=== PATIENT | female | born 1940 | race African-American/Black ===

== ENCOUNTER 2017-12-30 08:52 | Inpatient (IN) ==
[2017-12-30] MEDS ORDERED: ASPIRIN 325 MG TABLET PO STA (09:38)
[2017-12-30] MEDS ORDERED: ALBUTEROL/IPRATROPIUM 3 ML NEB RESP TX STA (09:38)
[2017-12-30] MEDS ORDERED: ONDANSETRON 4 MG/2 ML VIAL IV STA (09:38)
[2017-12-30] MEDS ORDERED: DILTIAZEM 50 MG/10 ML VIAL IV STA (09:38)
[2017-12-30] MEDS ORDERED: FUROSEMIDE 100 MG/10 ML VIAL IV STA (09:38)
[2017-12-30] MEDS ORDERED: CLINDAMYCIN INJ 600 MG in PREMIX 1 EACH IV STA (09:38)
[2017-12-30] MEDS ORDERED: ONDANSETRON 4 MG/2 ML VIAL ONE (09:49)
[2017-12-30] MEDS ORDERED: ASPIRIN 325 MG TABLET ONE (09:49)
[2017-12-30] MEDS ORDERED: FUROSEMIDE 100 MG/10 ML VIAL ONE (09:49)
[2017-12-30] MEDS ORDERED: DILTIAZEM 100 MG VIAL.ADD IV ONE ×2 (10:22→17:35)
[2017-12-30 10:35] LABS: Basophils % 0.2 % (0.0-0.8); Eosinophils % 0.3 % (0.00-10.9); Hematocrit 36.2 VOL% (35.7-47.0); Hemoglobin 12.2 GM/DL (12.0-16.0); Immature Granulocytes % 0.8 %; Immature Granulocytes Absolute 0.07 #; Lymphocytes # 1.4 10*3/uL (1.4-4.0); Lymphocytes % 16.8 % (21.3-54.2); Mean Corpuscular HGB Conc 33.7 GM/DL (32-36); Mean Corpuscular Hemoglobin 30 PG (27-34); Mean Corpuscular Volume 89.6 FL (87-102); Mean Platelet Volume 12.4 FL (9.6-12.0); Monocytes # 0.9 10*3/uL (0.11-0.8); Monocytes % 10.6 % (1.7-12.7); Neutrophils # 6.1 10*3/uL (1.4-7.4); Neutrophils % 71.3 % (38.7-73.9); Platelet Count 158 T/CUMM (130-400); Red Blood Count 4.04 MC/CUMM (3.8-5.5); Red Cell Distribution Width 14.3 % (9.3-17.3); White Blood Count 8.6 T/CUMM (4-12)
[2017-12-30 10:47] LABS: INR 1.3; PT Patient Result 13.6 SECS
[2017-12-30 10:50] LABS: Albumin 2.2 G/DL (3.4-5.0); Bilirubin,Total 0.7 MG/DL (0.2-1.0); Calcium 9.7 MG/DL (8.5-10.1); Osmolality,Calculated 284.4 MOS/KG (273-304); Potassium 3.8 MMOL/L (3.5-5.1); Total Protein 8.2 G/DL (6.4-8.3)
[2017-12-30 10:52] LABS: Apearance,Urine CLEAR (Clear); Bacteria,Urine Occasional /HPF (Few); Bilirubin,Urine Negative (Negative); Blood, Urine Negative (Negative); Glucose,Urine (UA) Negative (Negative); Ketones,Urine Negative (Negative); Mucus,Urine Occasional /LPF (Occasional); Nitrite,Urine Negative (Negative); Protein,Urine Negative; RBC,Urine 1 /HPF (0-4); Squamous Epithelial Cell,Urine Occasional /HPF (0-10); Urine Color Yellow (Yellow); Urine Specific Gravity 1.009 (1.001-1.035); Urine Urobilinogen < 2.0 EU/DL (0.2-1.0); WBC,Urine 1 /HPF (0-6)
[2017-12-30 10:57] LABS: Eosinophils 1 % (0-10); Hypochromasia 1+; Lymphocytes 18 % (20-55); Platelet Estimate Normal; Segmented Neutrophils 67 % (50-85); Total Cells Counted 100
[2017-12-30 10:58] LABS: Giant Platelets Few; Microcytosis Slight; Ovalocytes Slight
[2017-12-30] MEDS ORDERED: MAGNESIUM SULF RIDER 2 GM in PREMIX 1 EACH IV STA (11:08)
[2017-12-30] MEDS ORDERED: CLINDAMYCIN INJ 50 ML IV ONE (12:58)
[2017-12-30] MEDS ORDERED: MAGNESIUM SULF RIDER 50 ML IV ONE (12:58)
[2017-12-30] MEDS ORDERED: ONDANSETRON 4 MG/2 ML VIAL IV PRN (13:09)
[2017-12-30] MEDS ORDERED: ACETAMINOPHEN 325 MG TABLET PO PRN (13:09)
[2017-12-30] MEDS ORDERED: diphenhydrAMINE CAP 25 MG CAPSULE PO PRN (13:09)
[2017-12-30] MEDS ORDERED: guaiFENesin/DM ER 600-30 MG TABLET PO PRN (13:09)
[2017-12-30] MEDS ORDERED: DOCUSATE SODIUM 100 MG CAPSULE PO PRN (13:09)
[2017-12-30] MEDS ORDERED: SODIUM CHLORIDE 0.9% 1,000 ML IV SCH (13:30)
[2017-12-30] MEDS ORDERED: SODIUM CHLORIDE 0.9% 100 ML IV ONE (17:35)
[2017-12-30] MEDS ORDERED: DILTIAZEM INJ 100 MG in SODIUM CHLORIDE 0.9% 100 ML IV SCH (18:00)
[2017-12-30] MEDS: SODIUM CHLORIDE 0.9% 1,000 ML IV SCH (18:32)
[2017-12-30] MEDS: ENOXAPARIN 40 MG/0.4 ML SYRINGE SUBCUT SCH (18:39)
[2017-12-30] MEDS: METOPROLOL SUCCINATE XL 100 MG TABLET PO SCH (18:40)
[2017-12-30] MEDS: PANTOPRAZOLE 40 MG TABLET PO SCH (18:40)
[2017-12-30] MEDS: amLODIPine 10 MG TABLET PO SCH (18:40)
[2017-12-30] MEDS: ASPIRIN EC 81 MG TABLET PO SCH (18:40)
[2017-12-30] MEDS: VALSARTAN/HCTZ 80-12.5 MG TABLET PO SCH (18:40)
[2017-12-30] MEDS: COLCHICINE 0.6 MG TABLET PO SCH (18:40)
[2017-12-30] MEDS: FUROSEMIDE 40 MG/4 ML VIAL IV SCH (18:41)
[2017-12-30] MEDS: AMPICILLIN/SULBACTAM 3,000 MG in SODIUM CHLORIDE 0.9% 100 ML IV SCH (22:15)
[2017-12-30] MEDS: ATORVASTATIN 10 MG TABLET PO SCH (22:16)
[2017-12-30] MEDS: ZALEPLON 5 MG CAPSULE PO PRN (22:16)
[2017-12-30] MEDS: VANCOMYCIN INJ 1,000 MG in SODIUM CHLORIDE 0.9% 250 ML IV SCH (22:16)
[2017-12-31] MEDS: FUROSEMIDE 40 MG/4 ML VIAL IV SCH ×3 (00:55→13:06)
[2017-12-31] MEDS: AMPICILLIN/SULBACTAM 3,000 MG in SODIUM CHLORIDE 0.9% 100 ML IV SCH ×4 (03:11→21:36)
[2017-12-31] MEDS: MORPHINE 2 MG/1 ML SYRINGE IV PRN ×3 (03:42→21:41)
[2017-12-31 04:05] LABS: Basophils % 0.3 % (0.0-0.8); Eosinophils # 0.2 10*3/uL (0.0-0.87); Eosinophils % 1.9 % (0.00-10.9); Hematocrit 32.4 VOL% (35.7-47.0); Immature Granulocytes % 0.3 %; Immature Granulocytes Absolute 0.03 #; Lymphocytes # 1.8 10*3/uL (1.4-4.0); Lymphocytes % 19.5 % (21.3-54.2); Mean Corpuscular Hemoglobin 30 PG (27-34); Mean Corpuscular Volume 88.5 FL (87-102); Mean Platelet Volume 12.8 FL (9.6-12.0); Monocytes # 1.4 10*3/uL (0.11-0.8); Monocytes % 14.7 % (1.7-12.7); Neutrophils # 5.9 10*3/uL (1.4-7.4); Neutrophils % 63.3 % (38.7-73.9); Platelet Count 161 T/CUMM (130-400); Red Blood Count 3.66 MC/CUMM (3.8-5.5); Red Cell Distribution Width 14.4 % (9.3-17.3); White Blood Count 9.3 T/CUMM (4-12)
[2017-12-31 04:31] LABS: Band Neutrophils 1 % (0-10); Eosinophils 5 % (0-10); Lymphocytes 36 % (20-55); Platelet Estimate Normal; Segmented Neutrophils 54 % (50-85); Total Cells Counted 100
[2017-12-31 04:43] LABS: Albumin 2.1 G/DL (3.4-5.0); Bilirubin,Total 0.8 MG/DL (0.2-1.0); Calcium 9.1 MG/DL (8.5-10.1); Osmolality,Calculated 277.8 MOS/KG (273-304); Potassium 3.6 MMOL/L (3.5-5.1); Risk Ratio 3.24; Thyroid Stimulating Hormone 0.652 uIU/ml (0.358-3.74); Total Protein 7.1 G/DL (6.4-8.3)
[2017-12-31] MEDS ORDERED: RABIES IMMUNE GLOBULIN 300 UNIT/2 ML VIAL IM ONE (09:00)
[2017-12-31] MEDS ORDERED: RABIES VIRUS VACCINE 1 ML/2.5 UNIT KIT IM ONE (09:00)
[2017-12-31] MEDS ORDERED: BUPIVACAINE 0.25% 50 ML VIAL ONE (10:05)
[2017-12-31] MEDS ORDERED: LACTATED RINGERS 1,000 ML IV SCH (11:00)
[2017-12-31] MEDS ORDERED: SEVOFLURANE 1 UNIT/15 MINUTE INH ONE (11:20)
[2017-12-31] MEDS ORDERED: MIDAZOLAM 2 MG/2 ML VIAL ONE (11:20)
[2017-12-31] MEDS ORDERED: PROPOFOL 200 MG/20 ML VIAL IV ONE (11:20)
[2017-12-31] MEDS ORDERED: fentaNYL 100 MCG/2 ML VIAL ONE (11:21)
[2017-12-31] MEDS ORDERED: ONDANSETRON 4 MG/2 ML VIAL ONE (11:21)
[2017-12-31] MEDS: amLODIPine 10 MG TABLET PO SCH (12:42)
[2017-12-31] MEDS: VALSARTAN/HCTZ 80-12.5 MG TABLET PO SCH (12:42)
[2017-12-31] MEDS: COLCHICINE 0.6 MG TABLET PO SCH (12:42)
[2017-12-31] MEDS: PANTOPRAZOLE 40 MG TABLET PO SCH (12:43)
[2017-12-31] MEDS: ASPIRIN EC 81 MG TABLET PO SCH (12:43)
[2017-12-31] MEDS: ENOXAPARIN 40 MG/0.4 ML SYRINGE SUBCUT SCH (13:06)
[2017-12-31] MEDS: SODIUM CHLORIDE 0.9% 1,000 ML IV SCH (13:06)
[2017-12-31] MEDS: METOPROLOL SUCCINATE XL 100 MG TABLET PO SCH ×2 (13:17→21:36)
[2017-12-31] MEDS: VANCOMYCIN INJ 1,000 MG in SODIUM CHLORIDE 0.9% 250 ML IV SCH (21:35)
[2017-12-31] MEDS: ZALEPLON 5 MG CAPSULE PO PRN (21:36)
[2017-12-31] MEDS: ATORVASTATIN 10 MG TABLET PO SCH (21:37)
[2018-01-01] MEDS: AMPICILLIN/SULBACTAM 3,000 MG in SODIUM CHLORIDE 0.9% 100 ML IV SCH ×2 (02:29→09:07)
[2018-01-01 05:23] LABS: Calcium 8.9 MG/DL (8.5-10.1); Osmolality,Calculated 275.1 MOS/KG (273-304); Potassium 3.1 MMOL/L (3.5-5.1)
[2018-01-01] MEDS: POTASSIUM CHLORIDE 20 MEQ TABLET PO SCH ×4 (06:56→18:19)
[2018-01-01] MEDS: METOPROLOL SUCCINATE XL 100 MG TABLET PO SCH ×2 (09:06→22:29)
[2018-01-01] MEDS: COLCHICINE 0.6 MG TABLET PO SCH (09:06)
[2018-01-01] MEDS: VALSARTAN 80 MG TABLET PO SCH (09:06)
[2018-01-01] MEDS: amLODIPine 10 MG TABLET PO SCH (09:07)
[2018-01-01] MEDS: ASPIRIN EC 81 MG TABLET PO SCH (09:07)
[2018-01-01] MEDS: PANTOPRAZOLE 40 MG TABLET PO SCH (09:07)
[2018-01-01] MEDS ORDERED: MAGNESIUM SULF RIDER 2 GM in PREMIX 1 EACH IV ONE (13:17)
[2018-01-01 14:10] LABS: Troponin I Only < 0.015 NG/ML (0.00-0.045)
[2018-01-01] MEDS: ENOXAPARIN 40 MG/0.4 ML SYRINGE SUBCUT SCH (14:10)
[2018-01-01] MEDS: ISOSORBIDE MONONITRATE 30 MG TABLET PO SCH (14:10)
[2018-01-01] MEDS: MAGNESIUM OXIDE 400 MG TABLET PO SCH ×2 (14:11→22:29)
[2018-01-01] MEDS: MAGNESIUM SULFATE 1 GM/2 ML VIAL IM SCH (14:11)
[2018-01-01] MEDS ORDERED: MAGNESIUM OXIDE 400 MG TABLET PO SCH (21:00)
[2018-01-01] MEDS: ATORVASTATIN 40 MG TABLET PO SCH (22:29)
[2018-01-02] MEDS: MAGNESIUM SULFATE 1 GM/2 ML VIAL IM SCH (00:21)
[2018-01-02 05:48] LABS: Osmolality,Calculated 273.8 MOS/KG (273-304); Potassium 5.6 MMOL/L (3.5-5.1)
[2018-01-02] MEDS: BACITRACIN OINT 0.9 GM PACK TOP SCH (08:48)
[2018-01-02] MEDS: VALSARTAN 80 MG TABLET PO SCH (08:48)
[2018-01-02] MEDS: MAGNESIUM OXIDE 400 MG TABLET PO SCH ×2 (08:49→21:04)
[2018-01-02] MEDS: ASPIRIN EC 81 MG TABLET PO SCH (08:49)
[2018-01-02] MEDS: METOPROLOL SUCCINATE XL 100 MG TABLET PO SCH ×2 (08:49→21:04)
[2018-01-02] MEDS: ISOSORBIDE MONONITRATE 30 MG TABLET PO SCH (08:49)
[2018-01-02] MEDS: PANTOPRAZOLE 40 MG TABLET PO SCH (08:49)
[2018-01-02] MEDS: amLODIPine 10 MG TABLET PO SCH (08:49)
[2018-01-02] MEDS: COLCHICINE 0.6 MG TABLET PO SCH (08:49)
[2018-01-02] MEDS ORDERED: SODIUM POLYSTYRENE SULFATE 15 GM/60 ML BOTTLE PO ONE (11:03)
[2018-01-02] MEDS: ENOXAPARIN 40 MG/0.4 ML SYRINGE SUBCUT SCH (13:30)
[2018-01-02] MEDS: FLUCONAZOLE 100 MG TABLET PO SCH (16:22)
[2018-01-02] MEDS: ATORVASTATIN 40 MG TABLET PO SCH (21:04)
[2018-01-03 04:59] LABS: Basophils % 0.1 % (0.0-0.8); Eosinophils # 0.2 10*3/uL (0.0-0.87); Eosinophils % 1.8 % (0.00-10.9); Hematocrit 28.7 VOL% (35.7-47.0); Hemoglobin 9.5 GM/DL (12.0-16.0); Immature Granulocytes % 0.5 %; Immature Granulocytes Absolute 0.05 #; Lymphocytes # 1.8 10*3/uL (1.4-4.0); Lymphocytes % 19.1 % (21.3-54.2); Mean Corpuscular HGB Conc 33.1 GM/DL (32-36); Mean Corpuscular Hemoglobin 30 PG (27-34); Mean Corpuscular Volume 90.3 FL (87-102); Mean Platelet Volume 11.8 FL (9.6-12.0); Monocytes # 1.5 10*3/uL (0.11-0.8); Monocytes % 16.1 % (1.7-12.7); Neutrophils # 5.7 10*3/uL (1.4-7.4); Neutrophils % 62.4 % (38.7-73.9); Platelet Count 199 T/CUMM (130-400); Red Blood Count 3.18 MC/CUMM (3.8-5.5); Red Cell Distribution Width 14.3 % (9.3-17.3); White Blood Count 9.1 T/CUMM (4-12)
[2018-01-03 05:21] LABS: Band Neutrophils 5 % (0-10); Eosinophils 1 % (0-10); Hypochromasia 1+; Lymphocytes 22 % (20-55); Segmented Neutrophils 67 % (50-85); Total Cells Counted 100
[2018-01-03 05:22] LABS: Microcytosis Slight; Platelet Estimate Adequate; Target Cells Slight
[2018-01-03 05:33] LABS: Albumin 1.7 G/DL (3.4-5.0); Bilirubin,Total 0.5 MG/DL (0.2-1.0); Osmolality,Calculated 274.8 MOS/KG (273-304); Potassium 4.8 MMOL/L (3.5-5.1); Total Protein 6.6 G/DL (6.4-8.3)
[2018-01-03 08:07] VITALS: BP 141/65
[2018-01-03] MEDS: MAGNESIUM OXIDE 400 MG TABLET PO SCH (08:36)
[2018-01-03] MEDS: BACITRACIN OINT 0.9 GM PACK TOP SCH (08:36)
[2018-01-03] MEDS: amLODIPine 10 MG TABLET PO SCH (08:37)
[2018-01-03] MEDS: ASPIRIN EC 81 MG TABLET PO SCH (08:37)
[2018-01-03] MEDS: COLCHICINE 0.6 MG TABLET PO SCH (08:37)
[2018-01-03] MEDS: PANTOPRAZOLE 40 MG TABLET PO SCH (08:37)
[2018-01-03] MEDS: METOPROLOL SUCCINATE XL 100 MG TABLET PO SCH (08:37)
[2018-01-03] MEDS: ISOSORBIDE MONONITRATE 30 MG TABLET PO SCH (08:37)
[2018-01-03] MEDS: VALSARTAN 80 MG TABLET PO SCH (08:37)
[2018-01-03] MEDS: FLUCONAZOLE 100 MG TABLET PO SCH (08:37)
[2018-01-03] MEDS ORDERED: RABIES VIRUS VACCINE 1 ML/2.5 UNIT KIT IM ONE (09:00)
[2018-01-03] MEDS: ENOXAPARIN 40 MG/0.4 ML SYRINGE SUBCUT SCH (14:05)
[2018-01-07] MEDS ORDERED: RABIES VIRUS VACCINE 1 ML/2.5 UNIT KIT IM ONE (09:00)
[2018-01-14] MEDS ORDERED: RABIES VIRUS VACCINE 1 ML/2.5 UNIT KIT IM ONE (09:00)
== END 2018-01-03 15:12 | disposition home health service (06) | DRG 570 ==
LOC: EDUNIT# → EDBD → N.ED 08:52 → SUATTDRO 12:29 → N.EDINP 12:29 → N.TELES 17:57
PROVIDERS: ADMIT Internal Medicine Infectious Disease; ATTEND Internal Medicine Cardiovascular Disease

== ENCOUNTER 2018-06-13 13:40 | Observation (INO) ==
[2018-06-13 14:35] LABS: Basophils # 0.1 10*3/uL (0.0-0.2); Basophils % 0.7 % (0.0-0.8); Eosinophils # 0.6 10*3/uL (0.0-0.87); Eosinophils % 9.1 % (0.00-10.9); Hematocrit 38.2 VOL% (35.7-47.0); Hemoglobin 12.8 GM/DL (12.0-16.0); Immature Granulocytes % 0.1 %; Immature Granulocytes Absolute 0.01 #; Lymphocytes # 2.8 10*3/uL (1.4-4.0); Lymphocytes % 40.4 % (21.3-54.2); Mean Corpuscular HGB Conc 33.5 GM/DL (32-36); Mean Corpuscular Hemoglobin 29 PG (27-34); Mean Corpuscular Volume 86.4 FL (87-102); Mean Platelet Volume 13.4 FL (9.6-12.0); Monocytes # 0.7 10*3/uL (0.11-0.8); Monocytes % 10.4 % (1.7-12.7); Neutrophils # 2.7 10*3/uL (1.4-7.4); Neutrophils % 39.3 % (38.7-73.9); Platelet Count 124 T/CUMM (130-400); Red Blood Count 4.42 MC/CUMM (3.8-5.5); Red Cell Distribution Width 16.1 % (9.3-17.3); White Blood Count 6.9 T/CUMM (4-12)
[2018-06-13 15:09] LABS: Alanine Aminotransferase 60 U/L (13-56); Albumin 3.2 G/DL (3.4-5.0); Alkaline Phosphatase 98 U/L (45-117); Aspartate Amino Transferase 72 U/L (0-37); Blood Urea Nitrogen 27 MG/DL (7-18); Calcium 10.3 MG/DL (8.5-10.1); Glucose 121 MG/DL (74-106); Osmolality,Calculated 282.5 MOS/KG (273-304); Potassium 3.3 MMOL/L (3.5-5.1); Sodium 139 MMOL/L (136-145); Total Protein 8.1 G/DL (6.4-8.3)
[2018-06-13] MEDS ORDERED: ONDANSETRON 4 MG/2 ML VIAL IV PRN (17:30)
[2018-06-13] MEDS ORDERED: ACETAMINOPHEN 325 MG TABLET PO PRN (17:30)
[2018-06-13] MEDS ORDERED: SODIUM CHLORIDE 0.9% 1,000 ML IV SCH (17:30)
[2018-06-13] MEDS: POTASSIUM CHLORIDE 20 MEQ TABLET PO PRN ×3 (18:32→23:30)
[2018-06-13] MEDS: ENOXAPARIN 80 MG/0.8 ML SYRINGE SUBCUT SCH (18:33)
[2018-06-13] MEDS ORDERED: GLUCAGON 1 MG VIAL IM PRN (19:09)
[2018-06-13] MEDS ORDERED: DEXTROSE 50% 25 GM/50 ML VIAL IV PRN (19:09)
[2018-06-13 19:19] LABS: Apearance,Urine CLOUDY (Clear); Bacteria,Urine Occasional /HPF (Few); Bilirubin,Urine Negative (Negative); Blood, Urine Negative (Negative); Glucose,Urine (UA) Negative (Negative); Hyaline Casts,Urine 1 /LPF (0-3); Ketones,Urine Negative (Negative); Mucus,Urine Occasional /LPF (Occasional); Nitrite,Urine Positive (Negative); Protein,Urine Negative; RBC,Urine 3 /HPF (0-4); Renal Epithelial Cells,Urine Occasional /HPF (<1); Squamous Epithelial Cell,Urine Occasional /HPF (0-10); Urine Color Yellow (Yellow); Urine Urobilinogen < 2.0 EU/DL (0.2-1.0); WBC,Urine 198 /HPF (0-6)
[2018-06-13] MEDS: INSULIN REGULAR 100 UNIT/ML SUBCUT SCH (21:05)
[2018-06-14 04:17] LABS: Basophils % 0.5 % (0.0-0.8); Eosinophils # 0.8 10*3/uL (0.0-0.87); Hematocrit 33.4 VOL% (35.7-47.0); Hemoglobin 10.7 GM/DL (12.0-16.0); Immature Granulocytes % 0.2 %; Immature Granulocytes Absolute 0.01 #; Lymphocytes # 2.7 10*3/uL (1.4-4.0); Lymphocytes % 43.8 % (21.3-54.2); Mean Corpuscular Hemoglobin 29 PG (27-34); Mean Corpuscular Volume 89.3 FL (87-102); Mean Platelet Volume 14.1 FL (9.6-12.0); Monocytes # 0.8 10*3/uL (0.11-0.8); Monocytes % 12.2 % (1.7-12.7); Neutrophils % 31.3 % (38.7-73.9); Platelet Count 95 T/CUMM (130-400); Red Blood Count 3.74 MC/CUMM (3.8-5.5); Red Cell Distribution Width 16.2 % (9.3-17.3); White Blood Count 6.3 T/CUMM (4-12)
[2018-06-14 04:53] LABS: Albumin 2.9 G/DL (3.4-5.0); Bilirubin,Direct 0.17 MG/DL (0.0-0.20); Bilirubin,Indirect 0.5 MG/DL (0.0-1.0); Bilirubin,Total 0.7 MG/DL (0.2-1.0); Total Protein 6.9 G/DL (6.4-8.3)
[2018-06-14 04:59] LABS: Calcium 9.5 MG/DL (8.5-10.1); Osmolality,Calculated 287.1 MOS/KG (273-304); Potassium 3.9 MMOL/L (3.5-5.1); Risk Ratio 3.77; Thyroid Stimulating Hormone 0.43 uIU/ml (0.358-3.74)
[2018-06-14 05:31] LABS: Band Neutrophils 1 % (0-10); Eosinophils 7 % (0-10); Lymphocytes 59 % (20-55); Segmented Neutrophils 24 % (50-85); Total Cells Counted 100
[2018-06-14 05:32] LABS: Platelet Estimate Decreased
[2018-06-14] MEDS: ENOXAPARIN 80 MG/0.8 ML SYRINGE SUBCUT SCH ×2 (06:27→17:44)
[2018-06-14] MEDS: INSULIN REGULAR 100 UNIT/ML SUBCUT SCH ×4 (08:54→20:44)
[2018-06-14] MEDS ORDERED: ALLOPURINOL 100 MG TABLET PO SCH (09:00)
[2018-06-14] MEDS: COLCHICINE 0.6 MG TABLET PO SCH (09:20)
[2018-06-14] MEDS: PANTOPRAZOLE 40 MG TABLET PO SCH (09:20)
[2018-06-14] MEDS: ATORVASTATIN 20 MG TABLET PO SCH (09:21)
[2018-06-14] MEDS: ASPIRIN EC 81 MG TABLET PO SCH (09:21)
[2018-06-14] MEDS ORDERED: MAGNESIUM SULF RIDER 2 GM in PREMIX 1 EACH IV ONE (14:15)
[2018-06-15 04:33] LABS: Basophils % 0.7 % (0.0-0.8); Eosinophils # 0.6 10*3/uL (0.0-0.87); Hematocrit 34.4 VOL% (35.7-47.0); Hemoglobin 10.9 GM/DL (12.0-16.0); Immature Granulocytes % 0.2 %; Immature Granulocytes Absolute 0.01 #; Lymphocytes # 2.3 10*3/uL (1.4-4.0); Lymphocytes % 42.1 % (21.3-54.2); Mean Corpuscular HGB Conc 31.7 GM/DL (32-36); Mean Corpuscular Hemoglobin 29 PG (27-34); Mean Corpuscular Volume 90.1 FL (87-102); Mean Platelet Volume 13.6 FL (9.6-12.0); Monocytes # 0.7 10*3/uL (0.11-0.8); Monocytes % 12.8 % (1.7-12.7); Neutrophils # 1.8 10*3/uL (1.4-7.4); Neutrophils % 33.2 % (38.7-73.9); Platelet Count 82 T/CUMM (130-400); Red Blood Count 3.82 MC/CUMM (3.8-5.5); Red Cell Distribution Width 16.1 % (9.3-17.3); White Blood Count 5.5 T/CUMM (4-12)
[2018-06-15 04:47] LABS: Calcium 9.6 MG/DL (8.5-10.1); Osmolality,Calculated 286.1 MOS/KG (273-304); Potassium 3.7 MMOL/L (3.5-5.1)
[2018-06-15 05:07] LABS: Band Neutrophils 1 % (0-10); Eosinophils 10 % (0-10); Lymphocytes 38 % (20-55); Segmented Neutrophils 36 % (50-85); Total Cells Counted 100
[2018-06-15 05:08] LABS: Anisocytosis 1+; Ovalocytes Few; Platelet Estimate Decreased
[2018-06-15] MEDS: ENOXAPARIN 80 MG/0.8 ML SYRINGE SUBCUT SCH (05:57)
[2018-06-15 08:11] VITALS: BP 154/72
[2018-06-15] MEDS: INSULIN REGULAR 100 UNIT/ML SUBCUT SCH (11:39)
[2018-06-15] MEDS: COLCHICINE 0.6 MG TABLET PO SCH (11:40)
[2018-06-15] MEDS: ASPIRIN EC 81 MG TABLET PO SCH (11:40)
[2018-06-15] MEDS: ATORVASTATIN 20 MG TABLET PO SCH (11:40)
[2018-06-15] MEDS: PANTOPRAZOLE 40 MG TABLET PO SCH (11:40)
== END 2018-06-15 11:00 | disposition home or self-care (01) ==
LOC: N.ED 13:40 → N.EDINP 13:40 → N.TELES 18:03
PROVIDERS: ADMIT Internal Medicine; ATTEND Internal Medicine

== ENCOUNTER 2022-07-24 18:54 | Inpatient (IN) ==
[2022-07-24] MEDS ORDERED: ONDANSETRON 4 MG/2 ML VIAL IV ONE (21:16)
[2022-07-24] MEDS ORDERED: MORPHINE 2 MG/1 ML SYRINGE IV STA (21:16)
[2022-07-24 21:57] LABS: Basophils % 0.2 % (0.0-0.8); Eosinophils % 0.3 % (0.00-10.9); Hematocrit 31.6 VOL% (35.7-47.0); Hemoglobin 10.3 GM/DL (12.0-16.0); Immature Granulocytes % 0.6 %; Immature Granulocytes Absolute 0.06 #; Lymphocytes # 0.7 10*3/uL (1.4-4.0); Lymphocytes % 7.5 % (21.3-54.2); Mean Corpuscular HGB Conc 32.6 GM/DL (32-36); Monocytes # 0.8 10*3/uL (0.11-0.8); Monocytes % 8.2 % (1.7-12.7); NRBC # 0.02 10*3/uL; Neutrophils % 83.2 % (38.7-73.9); Platelet Count 246 T/CUMM (130-400); Red Blood Count 3.59 MC/CUMM (3.8-5.5); Red Cell Distribution Width 15.3 % (9.3-17.3); White Blood Count 9.6 T/CUMM (4-12)
[2022-07-24] MEDS ORDERED: hydrALAZINE 20 MG/1 ML VIAL IV STA (22:22)
[2022-07-24] MEDS ORDERED: HYDROmorphone 1 MG/1 ML SYRINGE IV STA (22:22)
[2022-07-24 22:23] LABS: Albumin 2.8 G/DL (3.4-5.0); Bilirubin,Total 0.9 MG/DL (0.20-1.00); Osmolality,Calculated 308.5 MOS/KG (273-304); Potassium 3.8 MMOL/L (3.5-5.1); Total Protein 8.6 G/DL (6.4-8.2)
[2022-07-25] MEDS ORDERED: SODIUM CHLORIDE 0.9% 1,000 ML IV STA (00:19)
[2022-07-25] MEDS ORDERED: DEXTROSE 50% 25 GM/50 ML VIAL IV STA (00:37)
[2022-07-25] MEDS ORDERED: DEXTROSE 50% 25 GM/50 ML SYRINGE IV STA (00:38)
[2022-07-25] MEDS ORDERED: hydrALAZINE 20 MG/1 ML VIAL IV PRN (02:08)
[2022-07-25] MEDS ORDERED: ACETAMINOPHEN 325 MG TABLET PO PRN (02:08)
[2022-07-25] MEDS ORDERED: DEXTROSE 10% 250 ML BAG IV PRN (02:08)
[2022-07-25] MEDS ORDERED: GLUCAGON 1 MG VIAL IM PRN (02:08)
[2022-07-25] MEDS ORDERED: CLINDAMYCIN INJ 600 MG/50 ML PREMIX IV SCH (03:00)
[2022-07-25 03:34] LABS: Bacteria,Urine Occasional /HPF (Few); RBC,Urine 22 /HPF (0-4); Squamous Epithelial Cell,Urine Moderate /HPF (0-10)
[2022-07-25 03:35] LABS: Bilirubin,Urine Negative (Negative); Blood, Urine Moderate mg/dL (Negative); Glucose,Urine (UA) Negative (Negative); Ketones,Urine Negative (Negative); Nitrite,Urine Negative (Negative); Protein,Urine 100 mg/dL (Negative); Urine Appearance Clear (Clear); Urine Color Yellow (Yellow); Urine Urobilinogen 0.2 eU/dL (<2.0); Urine pH 5.5 (4.5-8.0)
[2022-07-25] MEDS: SODIUM BICARB INJ 75 MEQ in SODIUM CHLORIDE 0.45% 1,000 ML IV SCH ×2 (03:50→21:32)
[2022-07-25] MEDS: cefTRIAXone 1,000 MG in SODIUM CHLORIDE 0.9% 100 ML IV SCH (06:23)
[2022-07-25 06:44] LABS: Basophils % 0.3 % (0.0-0.8); Eosinophils % 0.1 % (0.00-10.9); Hematocrit 29.2 VOL% (35.7-47.0); Hemoglobin 9.5 GM/DL (12.0-16.0); Immature Granulocytes % 0.7 %; Immature Granulocytes Absolute 0.07 #; Lymphocytes # 0.3 10*3/uL (1.4-4.0); Lymphocytes % 3.1 % (21.3-54.2); Mean Corpuscular HGB Conc 32.5 GM/DL (32-36); Mean Corpuscular Volume 88.5 FL (87-102); Mean Platelet Volume 12.1 FL (9.6-12.0); Monocytes % 10.5 % (1.7-12.7); Neutrophils % 85.3 % (38.7-73.9); Platelet Count 197 T/CUMM (130-400); Red Cell Distribution Width 15.1 % (9.3-17.3); White Blood Count 9.7 T/CUMM (4-12)
[2022-07-25 07:02] LABS: Calcium 8.4 MG/DL (8.5-10.1); Osmolality,Calculated 313.1 MOS/KG (273-304); Potassium 3.5 MMOL/L (3.5-5.1)
[2022-07-25 07:22] LABS: Band Neutrophils 3 % (0-10); Eosinophils 1 % (0-10); Hypochromia Slight; Lymphocytes 1 % (20-55); Microcytosis Slight; Platelet Estimate Adequate; Total Cells Counted 100
[2022-07-25] MEDS: METOPROLOL SUCCINATE XL 100 MG TABLET PO SCH (09:18)
[2022-07-25] MEDS: HEPARIN 5,000 UNIT/1 ML VIAL SUBCUT SCH ×2 (09:18→21:32)
[2022-07-25] MEDS: PANTOPRAZOLE 40 MG TABLET PO SCH (09:18)
[2022-07-25] MEDS: ASPIRIN EC 81 MG TABLET PO SCH (09:19)
[2022-07-25] MEDS: ATORVASTATIN 20 MG TABLET PO SCH (09:19)
[2022-07-25] MEDS ORDERED: MAGNESIUM SULF RIDER 2 GM/50 ML PREMIX IV ONE (11:00)
[2022-07-25] MEDS ORDERED: AZITHROMYCIN 250 MG TABLET PO ONE (13:51)
[2022-07-26 04:42] LABS: Basophils % 0.3 % (0.0-0.8); Eosinophils # 0.2 10*3/uL (0.0-0.87); Eosinophils % 1.5 % (0.00-10.9); Hematocrit 28.2 VOL% (35.7-47.0); Hemoglobin 9.5 GM/DL (12.0-16.0); Immature Granulocytes % 0.8 %; Immature Granulocytes Absolute 0.08 #; Lymphocytes # 0.5 10*3/uL (1.4-4.0); Lymphocytes % 5.3 % (21.3-54.2); Mean Corpuscular HGB Conc 33.7 GM/DL (32-36); Mean Corpuscular Volume 85.5 FL (87-102); Mean Platelet Volume 11.7 FL (9.6-12.0); Monocytes # 0.9 10*3/uL (0.11-0.8); Monocytes % 9.2 % (1.7-12.7); Neutrophils % 82.9 % (38.7-73.9); Platelet Count 174 T/CUMM (130-400); White Blood Count 9.9 T/CUMM (4-12)
[2022-07-26 05:03] LABS: Band Neutrophils 1 % (0-10); Eosinophils 7 % (0-10); Hypochromia Slight; Lymphocytes 6 % (20-55); Microcytosis Slight; Nucleated Red Blood Cells 1 /100 WBC (0-5); Total Cells Counted 100
[2022-07-26 05:04] LABS: Ovalocytes Slight; Platelet Estimate Adequate
[2022-07-26 05:17] LABS: Albumin 2.2 G/DL (3.4-5.0); Bilirubin,Total 0.8 MG/DL (0.20-1.00); Potassium 3.6 MMOL/L (3.5-5.1); Total Protein 6.7 G/DL (6.4-8.2)
[2022-07-26] MEDS: HEPARIN 5,000 UNIT/1 ML VIAL SUBCUT SCH ×2 (09:00→20:19)
[2022-07-26] MEDS: cefTRIAXone 1,000 MG in SODIUM CHLORIDE 0.9% 100 ML IV SCH (09:00)
[2022-07-26] MEDS: ASPIRIN EC 81 MG TABLET PO SCH (09:04)
[2022-07-26] MEDS: AZITHROMYCIN 250 MG TABLET PO SCH (09:05)
[2022-07-26] MEDS: PANTOPRAZOLE 40 MG TABLET PO SCH (09:05)
[2022-07-26] MEDS: METOPROLOL SUCCINATE XL 100 MG TABLET PO SCH (09:05)
[2022-07-26] MEDS: SODIUM BICARB INJ 75 MEQ in SODIUM CHLORIDE 0.45% 1,000 ML IV SCH ×2 (14:09→14:10)
[2022-07-26] MEDS: amLODIPine 10 MG TABLET PO SCH (17:36)
[2022-07-27 04:11] LABS: Basophils % 0.4 % (0.0-0.8); Eosinophils # 0.2 10*3/uL (0.0-0.87); Eosinophils % 2.4 % (0.00-10.9); Hematocrit 28.3 VOL% (35.7-47.0); Hemoglobin 9.3 GM/DL (12.0-16.0); Immature Granulocytes % 0.8 %; Immature Granulocytes Absolute 0.07 #; Lymphocytes # 0.8 10*3/uL (1.4-4.0); Lymphocytes % 8.3 % (21.3-54.2); Mean Corpuscular HGB Conc 32.9 GM/DL (32-36); Mean Corpuscular Volume 85.8 FL (87-102); Mean Platelet Volume 12.6 FL (9.6-12.0); Monocytes # 1.3 10*3/uL (0.11-0.8); Monocytes % 13.5 % (1.7-12.7); Neutrophils % 74.6 % (38.7-73.9); Platelet Count 163 T/CUMM (130-400); Red Cell Distribution Width 14.9 % (9.3-17.3); White Blood Count 9.3 T/CUMM (4-12)
[2022-07-27 04:28] LABS: Calcium 8.7 MG/DL (8.5-10.1); Potassium 3.2 MMOL/L (3.5-5.1)
[2022-07-27 04:57] LABS: Band Neutrophils 1 % (0-10); Eosinophils 6 % (0-10); Hypochromia Slight; Lymphocytes 5 % (20-55); Microcytosis Slight; Platelet Estimate Adequate; Total Cells Counted 100
[2022-07-27] MEDS: MORPHINE 2 MG/1 ML SYRINGE IV PRN (05:25)
[2022-07-27] MEDS: PANTOPRAZOLE 40 MG TABLET PO SCH (09:09)
[2022-07-27] MEDS: cefTRIAXone 1,000 MG in SODIUM CHLORIDE 0.9% 100 ML IV SCH (09:09)
[2022-07-27] MEDS: HEPARIN 5,000 UNIT/1 ML VIAL SUBCUT SCH ×2 (09:09→21:40)
[2022-07-27] MEDS: ASPIRIN EC 81 MG TABLET PO SCH (09:10)
[2022-07-27] MEDS: AZITHROMYCIN 250 MG TABLET PO SCH (09:10)
[2022-07-27] MEDS: ATORVASTATIN 20 MG TABLET PO SCH (09:10)
[2022-07-27] MEDS: METOPROLOL SUCCINATE XL 100 MG TABLET PO SCH (09:11)
[2022-07-27] MEDS: amLODIPine 10 MG TABLET PO SCH (09:11)
[2022-07-27] MEDS: ONDANSETRON 4 MG/2 ML VIAL IV PRN (11:50)
[2022-07-27] MEDS: SODIUM BICARB INJ 75 MEQ in SODIUM CHLORIDE 0.45% 1,000 ML IV SCH (12:45)
[2022-07-28] MEDS: SODIUM BICARB INJ 75 MEQ in SODIUM CHLORIDE 0.45% 1,000 ML IV SCH ×2 (02:50→20:16)
[2022-07-28] MEDS: MORPHINE 2 MG/1 ML SYRINGE IV PRN ×2 (02:57→22:18)
[2022-07-28 05:03] LABS: Basophils % 0.5 % (0.0-0.8); Eosinophils # 0.2 10*3/uL (0.0-0.87); Eosinophils % 3.4 % (0.00-10.9); Hematocrit 27.5 VOL% (35.7-47.0); Hemoglobin 8.9 GM/DL (12.0-16.0); Immature Granulocytes % 0.9 %; Immature Granulocytes Absolute 0.06 #; Lymphocytes # 0.8 10*3/uL (1.4-4.0); Lymphocytes % 11.5 % (21.3-54.2); Mean Corpuscular HGB Conc 32.4 GM/DL (32-36); Mean Corpuscular Volume 88.1 FL (87-102); Mean Platelet Volume 12.3 FL (9.6-12.0); Monocytes # 1.1 10*3/uL (0.11-0.8); Monocytes % 16.2 % (1.7-12.7); Neutrophils % 67.5 % (38.7-73.9); Platelet Count 150 T/CUMM (130-400); Red Blood Count 3.12 MC/CUMM (3.8-5.5); Red Cell Distribution Width 15.4 % (9.3-17.3); White Blood Count 6.5 T/CUMM (4-12)
[2022-07-28 05:24] LABS: Calcium 8.6 MG/DL (8.5-10.1); Osmolality,Calculated 306.5 MOS/KG (273-304); Potassium 3.1 MMOL/L (3.5-5.1)
[2022-07-28 05:32] LABS: Band Neutrophils 1 % (0-10); Eosinophils 4 % (0-10); Hypochromia Slight; Lymphocytes 16 % (20-55); Total Cells Counted 100
[2022-07-28 05:33] LABS: Microcytosis Slight; Ovalocytes Slight; Platelet Estimate Adequate
[2022-07-28] MEDS ORDERED: POTASSIUM CHLORIDE 20 MEQ TABLET PO ONE (05:36)
[2022-07-28] MEDS ORDERED: MAGNESIUM SULF RIDER 2 GM/50 ML PREMIX IV ONE (05:36)
[2022-07-28] MEDS: amLODIPine 10 MG TABLET PO SCH (10:43)
[2022-07-28] MEDS: HEPARIN 5,000 UNIT/1 ML VIAL SUBCUT SCH ×2 (10:43→20:17)
[2022-07-28] MEDS: AZITHROMYCIN 250 MG TABLET PO SCH (10:44)
[2022-07-28] MEDS: METOPROLOL SUCCINATE XL 100 MG TABLET PO SCH (10:44)
[2022-07-28] MEDS: PANTOPRAZOLE 40 MG TABLET PO SCH (10:44)
[2022-07-28] MEDS: ASPIRIN EC 81 MG TABLET PO SCH (10:44)
[2022-07-28] MEDS: cefTRIAXone 1,000 MG in SODIUM CHLORIDE 0.9% 100 ML IV SCH (10:44)
[2022-07-28] MEDS: INSULIN REGULAR 100 UNIT/ML SUBCUT SCH (20:10)
[2022-07-29] MEDS: SODIUM BICARB INJ 75 MEQ in SODIUM CHLORIDE 0.45% 1,000 ML IV SCH (01:46)
[2022-07-29 05:32] LABS: Basophils % 0.6 % (0.0-0.8); Eosinophils # 0.2 10*3/uL (0.0-0.87); Eosinophils % 3.2 % (0.00-10.9); Hematocrit 26.3 VOL% (35.7-47.0); Hemoglobin 8.5 GM/DL (12.0-16.0); Immature Granulocytes % 1.4 %; Immature Granulocytes Absolute 0.09 #; Lymphocytes # 1.2 10*3/uL (1.4-4.0); Lymphocytes % 17.8 % (21.3-54.2); Mean Corpuscular HGB Conc 32.3 GM/DL (32-36); Mean Corpuscular Volume 89.5 FL (87-102); Mean Platelet Volume 13.1 FL (9.6-12.0); Monocytes # 1.1 10*3/uL (0.11-0.8); Monocytes % 16.6 % (1.7-12.7); Neutrophils % 60.4 % (38.7-73.9); Platelet Count 146 T/CUMM (130-400); Red Blood Count 2.94 MC/CUMM (3.8-5.5); Red Cell Distribution Width 15.4 % (9.3-17.3); White Blood Count 6.5 T/CUMM (4-12)
[2022-07-29 05:44] LABS: Calcium 8.6 MG/DL (8.5-10.1); Osmolality,Calculated 310.1 MOS/KG (273-304)
[2022-07-29 06:37] LABS: Eosinophils 5 % (0-10); Hypochromia Slight; Lymphocytes 16 % (20-55); Microcytosis Slight; Target Cells Slight; Total Cells Counted 100
[2022-07-29] MEDS: INSULIN REGULAR 100 UNIT/ML SUBCUT SCH ×4 (07:41→21:09)
[2022-07-29] MEDS: amLODIPine 10 MG TABLET PO SCH (09:39)
[2022-07-29] MEDS: ATORVASTATIN 20 MG TABLET PO SCH (09:39)
[2022-07-29] MEDS: METOPROLOL SUCCINATE XL 100 MG TABLET PO SCH (09:39)
[2022-07-29] MEDS: ASPIRIN EC 81 MG TABLET PO SCH (09:39)
[2022-07-29] MEDS: cefTRIAXone 1,000 MG in SODIUM CHLORIDE 0.9% 100 ML IV SCH (09:39)
[2022-07-29] MEDS: AZITHROMYCIN 250 MG TABLET PO SCH (09:39)
[2022-07-29] MEDS: HEPARIN 5,000 UNIT/1 ML VIAL SUBCUT SCH ×2 (09:39→21:10)
[2022-07-29] MEDS ORDERED: LABETALOL 20 MG/4 ML SYRINGE IV ONE (10:22)
[2022-07-29] MEDS: SODIUM CHLORIDE 0.45% 1,000 ML IV SCH (11:07)
[2022-07-29] MEDS: PANTOPRAZOLE 40 MG TABLET PO SCH (11:07)
[2022-07-29] MEDS: POTASSIUM CHLORIDE 20 MEQ TABLET PO SCH ×2 (11:07→21:07)
[2022-07-29] MEDS: MORPHINE 2 MG/1 ML SYRINGE IV PRN (14:02)
[2022-07-29] MEDS: DICLOFENAC 1% GEL 100 GM TUBE TOP SCH ×2 (17:00→21:08)
[2022-07-30] MEDS: SODIUM CHLORIDE 0.45% 1,000 ML IV SCH ×2 (00:14→15:00)
[2022-07-30 05:47] LABS: Calcium 8.6 MG/DL (8.5-10.1); Osmolality,Calculated 295.8 MOS/KG (273-304); Potassium 3.7 MMOL/L (3.5-5.1)
[2022-07-30 05:55] LABS: Basophils % 0.4 % (0.0-0.8); Eosinophils # 0.3 10*3/uL (0.0-0.87); Eosinophils % 4.7 % (0.00-10.9); Hematocrit 25.1 VOL% (35.7-47.0); Hemoglobin 8.1 GM/DL (12.0-16.0); Immature Granulocytes % 1.4 %; Lymphocytes # 1.4 10*3/uL (1.4-4.0); Lymphocytes % 19.7 % (21.3-54.2); Mean Corpuscular HGB Conc 32.3 GM/DL (32-36); Mean Corpuscular Volume 89.3 FL (87-102); Mean Platelet Volume 13.2 FL (9.6-12.0); Monocytes # 1.2 10*3/uL (0.11-0.8); Monocytes % 16.6 % (1.7-12.7); Neutrophils % 57.2 % (38.7-73.9); Platelet Count 147 T/CUMM (130-400); Red Blood Count 2.81 MC/CUMM (3.8-5.5); Red Cell Distribution Width 15.2 % (9.3-17.3); White Blood Count 7.3 T/CUMM (4-12)
[2022-07-30 06:03] LABS: Band Neutrophils 1 % (0-10); Eosinophils 4 % (0-10); Lymphocytes 10 % (20-55); Platelet Estimate Adequate; Total Cells Counted 100
[2022-07-30 06:04] LABS: Hypochromia Slight; Microcytosis Slight
[2022-07-30] MEDS: INSULIN REGULAR 100 UNIT/ML SUBCUT SCH ×4 (07:44→20:16)
[2022-07-30] MEDS ORDERED: METOPROLOL SUCCINATE XL 100 MG TABLET PO SCH (09:00)
[2022-07-30] MEDS: amLODIPine 10 MG TABLET PO SCH (09:08)
[2022-07-30] MEDS: PANTOPRAZOLE 40 MG TABLET PO SCH (09:09)
[2022-07-30] MEDS: POTASSIUM CHLORIDE 20 MEQ TABLET PO SCH (09:09)
[2022-07-30] MEDS: ASPIRIN EC 81 MG TABLET PO SCH (09:09)
[2022-07-30] MEDS: HEPARIN 5,000 UNIT/1 ML VIAL SUBCUT SCH ×2 (09:13→20:16)
[2022-07-30] MEDS: cefTRIAXone 1,000 MG in SODIUM CHLORIDE 0.9% 100 ML IV SCH (09:16)
[2022-07-30] MEDS: DICLOFENAC 1% GEL 100 GM TUBE TOP SCH ×4 (09:25→20:17)
[2022-07-30] MEDS: MORPHINE 2 MG/1 ML SYRINGE IV PRN (12:22)
[2022-07-30] MEDS: hydrALAZINE 10 MG TABLET PO SCH ×2 (15:25→20:16)
[2022-07-31] MEDS: SODIUM CHLORIDE 0.45% 1,000 ML IV SCH ×3 (04:15→22:15)
[2022-07-31 05:26] LABS: Basophils % 0.3 % (0.0-0.8); Eosinophils # 0.4 10*3/uL (0.0-0.87); Eosinophils % 5.2 % (0.00-10.9); Hematocrit 25.9 VOL% (35.7-47.0); Hemoglobin 8.1 GM/DL (12.0-16.0); Immature Granulocytes % 1.7 %; Immature Granulocytes Absolute 0.13 #; Lymphocytes # 1.3 10*3/uL (1.4-4.0); Mean Corpuscular HGB Conc 31.3 GM/DL (32-36); Mean Corpuscular Volume 91.2 FL (87-102); Mean Platelet Volume 12.9 FL (9.6-12.0); Monocytes # 1.2 10*3/uL (0.11-0.8); Monocytes % 15.2 % (1.7-12.7); Neutrophils % 60.6 % (38.7-73.9); Platelet Count 142 T/CUMM (130-400); Red Blood Count 2.84 MC/CUMM (3.8-5.5); Red Cell Distribution Width 15.7 % (9.3-17.3); White Blood Count 7.6 T/CUMM (4-12)
[2022-07-31 05:40] LABS: Calcium 8.6 MG/DL (8.5-10.1); Osmolality,Calculated 292.7 MOS/KG (273-304); Potassium 3.8 MMOL/L (3.5-5.1)
[2022-07-31] MEDS: INSULIN REGULAR 100 UNIT/ML SUBCUT SCH ×4 (09:42→20:04)
[2022-07-31] MEDS: PANTOPRAZOLE 40 MG TABLET PO SCH (09:55)
[2022-07-31] MEDS: HEPARIN 5,000 UNIT/1 ML VIAL SUBCUT SCH ×2 (09:55→20:06)
[2022-07-31] MEDS: ATORVASTATIN 20 MG TABLET PO SCH (09:55)
[2022-07-31] MEDS: amLODIPine 10 MG TABLET PO SCH (09:55)
[2022-07-31] MEDS: ASPIRIN EC 81 MG TABLET PO SCH (09:55)
[2022-07-31] MEDS: METOPROLOL SUCCINATE XL 100 MG TABLET PO SCH (09:55)
[2022-07-31] MEDS: cefTRIAXone 1,000 MG in SODIUM CHLORIDE 0.9% 100 ML IV SCH (09:57)
[2022-07-31] MEDS: hydrALAZINE 10 MG TABLET PO SCH (09:58)
[2022-07-31] MEDS: DICLOFENAC 1% GEL 100 GM TUBE TOP SCH ×3 (09:58→21:18)
[2022-07-31] MEDS: ONDANSETRON 4 MG/2 ML VIAL IV PRN (10:15)
[2022-07-31] MEDS: DOXAZOSIN 4 MG TABLET PO SCH (20:05)
[2022-07-31] MEDS ORDERED: hydrALAZINE 25 MG TABLET PO SCH (21:00)
[2022-07-31] MEDS: MORPHINE 2 MG/1 ML SYRINGE IV PRN (22:45)
[2022-08-01 05:51] LABS: Basophils % 0.3 % (0.0-0.8); Eosinophils # 0.3 10*3/uL (0.0-0.87); Eosinophils % 3.6 % (0.00-10.9); Hematocrit 26.1 VOL% (35.7-47.0); Immature Granulocytes % 1.1 %; Immature Granulocytes Absolute 0.08 #; Lymphocytes # 1.5 10*3/uL (1.4-4.0); Lymphocytes % 20.9 % (21.3-54.2); Mean Corpuscular HGB Conc 30.7 GM/DL (32-36); Mean Corpuscular Volume 92.6 FL (87-102); Mean Platelet Volume 12.6 FL (9.6-12.0); Monocytes % 13.5 % (1.7-12.7); Neutrophils % 60.6 % (38.7-73.9); Platelet Count 141 T/CUMM (130-400); Red Blood Count 2.82 MC/CUMM (3.8-5.5); Red Cell Distribution Width 15.9 % (9.3-17.3); White Blood Count 7.2 T/CUMM (4-12)
[2022-08-01 06:18] LABS: Calcium 8.6 MG/DL (8.5-10.1); Potassium 4.2 MMOL/L (3.5-5.1)
[2022-08-01] MEDS: INSULIN REGULAR 100 UNIT/ML SUBCUT SCH ×4 (07:28→23:19)
[2022-08-01] MEDS: METOPROLOL SUCCINATE XL 100 MG TABLET PO SCH (08:51)
[2022-08-01] MEDS: ASPIRIN EC 81 MG TABLET PO SCH (08:52)
[2022-08-01] MEDS: PANTOPRAZOLE 40 MG TABLET PO SCH (08:53)
[2022-08-01] MEDS: HEPARIN 5,000 UNIT/1 ML VIAL SUBCUT SCH ×2 (08:54→21:16)
[2022-08-01] MEDS ORDERED: MAGNESIUM SULF RIDER 1 GM/100 ML PREMIX IV ONE (09:00)
[2022-08-01] MEDS: MAGNESIUM CHLORIDE 64 MG TABLET PO SCH (09:32)
[2022-08-01] MEDS: cefTRIAXone 1,000 MG in SODIUM CHLORIDE 0.9% 100 ML IV SCH (09:32)
[2022-08-01] MEDS: amLODIPine 10 MG TABLET PO SCH (09:36)
[2022-08-01] MEDS: DICLOFENAC 1% GEL 100 GM TUBE TOP SCH ×3 (09:37→23:19)
[2022-08-01] MEDS: MORPHINE 2 MG/1 ML SYRINGE IV PRN ×2 (13:39→21:12)
[2022-08-01] MEDS: SODIUM CHLORIDE 0.45% 1,000 ML IV SCH (13:39)
[2022-08-01] MEDS: DOXAZOSIN 4 MG TABLET PO SCH (21:08)
[2022-08-02] MEDS: SODIUM CHLORIDE 0.45% 1,000 ML IV SCH ×2 (02:31→09:39)
[2022-08-02] MEDS: MORPHINE 2 MG/1 ML SYRINGE IV PRN ×2 (03:35→12:49)
[2022-08-02 06:44] LABS: Calcium 8.6 MG/DL (8.5-10.1); Osmolality,Calculated 286.7 MOS/KG (273-304)
[2022-08-02] MEDS: PANTOPRAZOLE 40 MG TABLET PO SCH (09:27)
[2022-08-02] MEDS: MAGNESIUM CHLORIDE 64 MG TABLET PO SCH (09:27)
[2022-08-02] MEDS: METOPROLOL SUCCINATE XL 100 MG TABLET PO SCH (09:27)
[2022-08-02] MEDS: ATORVASTATIN 20 MG TABLET PO SCH (09:27)
[2022-08-02] MEDS: ASPIRIN EC 81 MG TABLET PO SCH (09:27)
[2022-08-02] MEDS: cefTRIAXone 1,000 MG in SODIUM CHLORIDE 0.9% 100 ML IV SCH (09:29)
[2022-08-02] MEDS: amLODIPine 10 MG TABLET PO SCH (09:29)
[2022-08-02] MEDS: HEPARIN 5,000 UNIT/1 ML VIAL SUBCUT SCH (09:29)
[2022-08-02] MEDS: INSULIN REGULAR 100 UNIT/ML SUBCUT SCH ×2 (09:31→11:50)
[2022-08-02] MEDS: DICLOFENAC 1% GEL 100 GM TUBE TOP SCH (09:35)
[2022-08-02 12:06] VITALS: BP 143/48
== END 2022-08-02 14:55 | disposition home health service (06) | DRG 682 ==
LOC: N.ED 18:54 → SUATTDRO 07-25 02:09 → N.5E 07-25 02:09
PROVIDERS: ADMIT Internal Medicine; ATTEND Hospitalist